=== PATIENT | male | born 1965 | race Hispanic/Latino ===

== ENCOUNTER 2017-03-13 08:50 | Inpatient (IN) | payer OTHER ==
[~2017-03-13 08:50] MED LIST: HEPARIN IV ONE; NACL 0.9% 1000 ML 1,000 ML IV ONE; ZOFRAN IV ONE
[2017-03-13] MEDS ORDERED: HEPARIN 10,000 UNITS/10 ML ONE ×2 (08:58→08:59)
[2017-03-13] MEDS ORDERED: HEPARIN/ 0.45% NACL-25,000 UNIT/500 ML 0 UNIT/0 ML BAG ONE (08:58)
--- NOTE | 2017-03-13 08:58 | Emergency Department Report ---
ED Chest Pain HPI - General Stated Complaint: CHEST PAIN Time Seen by Provider: 03/13/17 08:50 - History of Present Illness Initial Comments: 52-year-old male here with chest pain. Patient started having pressure was walking at work. Patient felt significant pressure in the center of his chest and shortness of breath associated with it. Complains of some nausea no vomiting. EMS transmitted EKG approximately 5 minutes prior to arrival that showed inferior ST elevation in leads 2,3 and aVF. He was given 0.4 mg of nitroglycerin prior to arrival and an aspirin prior to arrival. -: Sudden Onset: during rest, during exertion Pain Location: substernal Pain Radiation: none Severity: severe Quality: tightness Improves With: nothing Worsens With: nothing re: nausea Treatments Prior to Arrival: aspirin, nitroglycerin - Related Data Previous Rx's Medication Instructions Recorded Last Taken Type Cephalexin [Keflex] 500 mg PO Q6H #40 capsule 12/02/14 Unknown Rx Ibuprofen [Motrin] 600 mg PO Q8H PRN #50 tablet 12/02/14 Unknown Rx Sulfamethoxazole/Trimethoprim 1 each PO BID #20 tablet 12/02/14 Unknown Rx [Bactrim Ds] oxyCODONE /ACETAMINOPHEN [Percocet 1 tab PO Q6HR PRN #20 tablet 12/02/14 Unknown Rx 5/325] Allergies Allergy/AdvReac Type Severity Reaction Status Date / Time No Known Allergies Allergy Unverified 12/01/14 18:03 Heart Score - HEART Score History: Highly suspicious EKG: Significant ST-depression Age: 45-65 Risk factors: 1-2 risk factors Troponin: < normal limit HEART Score: 6 ED Review of Systems ROS: Stated complaint: CHEST PAIN Other details as noted in HPI Comment: All other systems reviewed and negative Constitutional: denies: chills, fever Eyes: denies: eye pain, eye discharge, vision change ENT: denies: ear pain, throat pain Respiratory: denies: cough, shortness of breath, wheezing Cardiovascular: chest pain. denies: palpitations Endocrine: no symptoms reported Gastrointestinal: denies: abdominal pain, nausea, diarrhea Genitourinary: denies: urgency, dysuria Musculoskeletal: denies: back pain, joint swelling, arthralgia Skin: denies: rash, lesions Neurological: denies: headache, weakness, paresthesias Psychiatric: denies: anxiety, depression Hematological/Lymphatic: denies: easy bleeding, easy bruising ED Past Medical Hx - Family History Family history: no significant, CAD/RI - Social History Smoking Status: Current Every Day Smoker Substance Use Type: None, Marijuana - Medications Home Medications: Home Medications Medication Instructions Recorded Confirmed Last Taken Type Cephalexin [Keflex] 500 mg PO Q6H #40 capsule 12/02/14 Unknown Rx Ibuprofen [Motrin] 600 mg PO Q8H PRN #50 tablet 12/02/14 Unknown Rx Sulfamethoxazole/Trimethoprim 1 each PO BID #20 tablet 12/02/14 Unknown Rx [Bactrim Ds] oxyCODONE /ACETAMINOPHEN [Percocet 1 tab PO Q6HR PRN #20 tablet 12/02/14 Unknown Rx 5/325] ED Physical Exam - General General appearance: alert, anxious, other (appears uncomfortable) - Head Head exam: Present: atraumatic, normocephalic - Eye Eye exam: Present: normal appearance. Absent: scleral icterus, conjunctival injection - ENT ENT exam: Present: mucous membranes moist - Neck Neck exam: Present: normal inspection - Respiratory Respiratory exam: Present: normal lung sounds bilaterally. Absent: respiratory distress - Cardiovascular Cardiovascular Exam: Present: regular rate, normal rhythm, normal heart sounds. Absent: systolic murmur, diastolic murmur, rubs, gallop - GI/Abdominal GI/Abdominal exam: Present: soft, normal bowel sounds. Absent: distended, tenderness, guarding - Rectal Rectal exam: Present: deferred - Extremities Exam Extremities exam: Present: normal inspection - Back Exam Back exam: Present: normal inspection - Neurological Exam Neurological exam: Present: alert, oriented X3 - Psychiatric Psychiatric exam: Present: normal affect, normal mood - Skin Skin exam: Present: warm, dry, intact, normal color. Absent: rash ED Medical Decision Making - EKG Data -: EKG Interpreted by Me - EKG Data 03/13/17 09:01 Sinus rate of 80 normal axis, ST elevation in leads 23 aVF. Right-sided EKG shows ST elevation in 23 aVF and leads V4 through V6 consistent with possible RV infarct - Medical Decision Making Patient presented with obvious ST elevation RI. bottle labeler activated prior to arrival. Discussed case with Dr. Hassan and passed along ST elevation RI information. On arrival repeat EKG shows clear ST elevation RI. Patient quickly taken to [facility]. Portions of this chart were dictated with dictation software. There may be dictation errors contained within this note. Critical care attestation.: If time is entered above; I have spent that time in minutes in the direct care of this critically ill patient, excluding procedure time. ED Disposition Clinical Impression: STEMI (ST elevation myocardial infarction) Disposition: OP ADMIT IP TO THIS HOSP Is pt being admited?: Yes Condition: Stable
[2017-03-13] MEDS ORDERED: HEPARIN/NS 5000 UNIT/500ML(CATH LAB) 1,000 ML IR ONE (08:59)
[2017-03-13] MEDS ORDERED: HEPARIN/ 0.45% NACL-25,000 UNIT/500 ML 25,000 UNIT/500 ML BAG IV SCH (09:00)
[2017-03-13] MEDS ORDERED: XYLOCAINE 2% INFILTRATI ONE (09:00)
[2017-03-13] MEDS ORDERED: NITROGLYCERIN SYRINGE 3 ML ONE (09:00)
[2017-03-13] MEDS ORDERED: ANGIOMAX IV ONE (09:01)
[2017-03-13] MEDS ORDERED: NACL 0.9% 50 ML ONE (09:01)
[2017-03-13] MEDS ORDERED: NACL 0.9% 500 ML 0 ML ONE (09:02)
[2017-03-13 09:11] LABS: Basophils % (Auto) 0.9 % (0.0-1.8); Eosinophils % (Auto) 0.2 % (0.0-4.3); Hematocrit 46.8 % (35.5-45.6); Hemoglobin 15.8 gm/dl (11.8-15.2); Mean Corpuscular HGB Conc 34 % (32-34); Mean Corpuscular Hemoglobin 34 pg (28-32); Mean Corpuscular Volume 100 fl (84-94); Platelet Count 297 K/mm3 (140-440); Red Cell Distribution Width 13.4 % (13.2-15.2)
[2017-03-13] MEDS ORDERED: MILK OF MAGNESIA PO PRN (09:13)
[2017-03-13] MEDS ORDERED: ALUM-MAG HYDROX-SIMETH 200-200-20MG/5ML PO PRN (09:13)
[2017-03-13] MEDS ORDERED: DULCOLAX PR PRN (09:13)
[2017-03-13 09:14] LABS: Creatine Kinase MB 3.9 ng/mL (0.0-4.0)
[2017-03-13 09:15] LABS: Anion Gap 26 mmol/L; BUN/Creatinine Ratio 23.33; Blood Urea Nitrogen 21 mg/dL (9-20); Calcium 9.6 mg/dL (8.4-10.2); Carbon Dioxide 15 mmol/L (22-30); Chloride 95.3 mmol/L (98-107); Creatine Kinase 131 units/L (55-170); Glucose 178 mg/dL (75-100); Potassium 3.6 mmol/L (3.6-5.0); Sodium 133 mmol/L (137-145)
--- NOTE | 2017-03-13 09:22 | History and Physical Report ---
History of Present Illness Date of examination: 03/13/17 Date of admission: 03/13/2017 Chief complaint: chest pain History of present illness: The pt is a 52-year-old male with a past medical history significant for tobacco use. He is previously unknown to our practice. He presented via EMS with c/o chest pain. Patient started having pressure while walking at work. Patient felt significant pressure in the center of his chest and shortness of breath associated with it. Pt also complains of some nausea, no vomiting. Per EMS, pt was found to be hypertensive following their arrival (BPs approx. 210/ 100). EMS transmitted EKG approximately 5 minutes prior to arrival that showed inferior ST elevation in leads 2,3 and aVF and code STEMI was activated prior to pt's arrival. En route to ED, pt was given 0.4 mg of nitroglycerin and 324mg ASA. Per EMS, pt's BPs improved to 170s/90s following SL nitro. Following arrival, repeat EKG showed inferolateral ST elevations and pt was transported to cath laboratory technician for emergent coronary angiography per Dr. Cynthia Hassan. Past History Past Medical History: No medical history Past Surgical History: No surgical history Social history: smoking. denies: alcohol abuse, prescription drug abuse Medications and Allergies Allergies Allergy/AdvReac Type Severity Reaction Status Date / Time No Known Allergies Allergy Unverified 12/01/14 18:03 Home Medications Medication Instructions Recorded Confirmed Last Taken Type Cephalexin [Keflex] 500 mg PO Q6H #40 capsule 12/02/14 Unknown Rx Ibuprofen [Motrin] 600 mg PO Q8H PRN #50 tablet 12/02/14 Unknown Rx Sulfamethoxazole/Trimethoprim 1 each PO BID #20 tablet 12/02/14 Unknown Rx [Bactrim Ds] oxyCODONE /ACETAMINOPHEN [Percocet 1 tab PO Q6HR PRN #20 tablet 12/02/14 Unknown Rx 5/325] Active Meds: Active Medications Heparin Sodium (Porcine) (Heparin) 4,000 unit IV ONCE ONE Stop: 03/13/17 08:51 Last Admin: 03/13/17 08:57 Dose: 4,000 unit Heparin Sodium/Sodium Chloride (Heparin/ 0.45% Nacl-25,000 Unit/500 Ml) 25,000 unit in 500 mls @ 0 mls/hr IV TITRATE IVETT; 15 UNITS/KG/HR PRN Reason: Protocol Sodium Chloride (Nacl 0.9% 1000 Ml) 1,000 mls @ 42 mls/hr IV ONCE ONE Stop: 03/14/17 08:38 Last Admin: 03/13/17 08:58 Dose: 42 mls/hr Review of Systems Constitutional: no weight loss, no weight gain, no fever, no chills, no sweats Ears, nose, mouth and throat: no ear pain, no nose pain, no sinus pressure, no sinus pain Cardiovascular: chest pain, shortness of breath, dyspnea on exertion, no orthopnea, no palpitations, no rapid/irregular heart beat, no edema, no syncope , no lightheadedness, no paroxysmal nocturnal dyspnea, no high blood pressure Respiratory: shortness of breath, dyspnea on exertion, no cough, no congestion, no wheezing, no pain on inspiration Gastrointestinal: nausea, no abdominal pain, no vomiting, no diarrhea, no constipation, no change in bowel habits Genitourinary Male: no dysuria, no hematuria, no flank pain, no discharge, no urinary frequency, no urinary hesitancy Musculoskeletal: no neck stiffness, no neck pain, no shooting arm pain, no arm numbness/tingling, no low back pain, no shooting leg pain, no leg numbness/ tingling, no redness of joints Integumentary: no rash, no pruritis, no redness, no sores, no wounds Neurological: no head injury, no paralysis, no weakness, no parathesias, no numbness, no tingling, no seizures, no syncope Endocrine: no cold intolerance, no heat intolerance Hematologic/Lymphatic: no easy bruising, no easy bleeding, no lymphadenopathy Allergic/Immunologic: no urticaria, no wheezing, no persistent infections Physical Examination Vital Signs Temp Pulse Resp BP Pulse Ox 98.0 F 74 22 169/100 100 03/13/17 08:51 03/13/17 08:51 03/13/17 08:51 03/13/17 08:51 03/13/17 08:51 General appearance: mild distress, other (diaphoretic ) HEENT: Positive: PERRL Neck: Positive: neck supple, trachea midline Cardiac: Positive: Reg Rate and Rhythm, S1/S2 Lungs: Positive: clear to auscultation Neuro: Positive: Grossly Intact, Cranial Nerve 2-12 Intact Abdomen: Positive: Unremarkable, Soft, Active Bowel Sounds. Negative: Tender Skin: Positive: Clear. Negative: Rash, Wound Musculoskeletal: No Fluid Collection, No Pain, Normal Range of Motion Extremities: Absent: edema Results 03/13/17 08:51 03/13/17 08:51 Cardiac Enzymes 03/13/17 Range/Units 08:51 CK-MB (CK-2) 3.9 (0.0-4.0) ng/mL CBC 03/13/17 Range/Units 08:51 Blanco # 0.8 (0.0-0.8) K/mm3 Eos # 0.0 (0.0-0.4) K/mm3 Baso # 0.1 (0.0-0.1) K/mm3 Comprehensive Metabolic Panel 03/13/17 Range/Units 08:51 Sodium 133 L (137-145) mmol/L Potassium 3.6 (3.6-5.0) mmol/L Chloride 95.3 L (98-107) mmol/L Carbon Dioxide 15 L (22-30) mmol/L BUN 21 H (9-20) mg/dL Creatinine 0.9 (0.8-1.5) mg/dL Glucose 178 H (75-100) mg/dL Calcium 9.6 (8.4-10.2) mg/dL - Imaging and Cardiology Echo: pending Cardiac cath: pending EKG: image reviewed EKG interpretations - Telemetry EKG Rhythm: Sinus Rhythm - EKG Sinus rhythms and dysrhythmias: sinus rhythm Myocardial infarction: inferior PA (acute or rec, lateral PA (acute or rece Assessment and Plan Assessment: Inferolateral STEMI HTN Tobacco use Plan: Proceed with [facility]. Await findings. The patient has been seen in conjunction with Dr. Cynthia Hassan who agrees with the assessment and plan of care.
[2017-03-13] MEDS ORDERED: EFFIENT PO ONE (09:37)
[2017-03-13 09:43] LABS: INR 0.9 (0.87-1.13)
[2017-03-13 09:44] LABS: Partial Thromboplastin Time 31.4 Sec. (24.2-36.6)
[2017-03-13] MEDS ORDERED: SUBLIMAZE ONE (10:03)
--- NOTE | 2017-03-13 10:13 | Admit Criteria Form ---
Admission Criteria Documentation: MYOCARDIAL INFARCTION Clinical Indications for Admission to Inpatient Care (Place 'X' for any and all applicable criteria): Admission is indicated for 1 or more of the following (1)(2)(3)(4): [X]I. Acute DE [ ]II. Contraindications and/or Inappropriate clinical situations for Observational Care in patients with Myocardial Infarction, when ANY ONE of the following is required: [ ]a) Patient with High risk of cardiac embolism (e.g, patients with previous cardiac embolism, LVEF < 40%, age >75 and patients with prosthetic valve) 18 [ ]b) Patient with Moderate risk including DM patient, CAD and patient aged 65-75 18 [ ]c) Patient with any change in cardiac biomarker especially troponin should be managed as high risk in an inpatient setting 19 [ ]d) Physician judgement irrespective of ECG and other diagnostic findings 20 [ ]III.General contraindications and/or Inappropriate clinical situations for Observational Care in patients with Myocardial Infarction, when ANY ONE of the following is required: [ ]a) Prediction of prolongation of LOS based on ANY ONE of the following may be considered as a contraindication for observational care 2, 3, 4, 5, 6, 7, 8, 9, 10, 11 [ ]i) Age > 65 yrs. [ ]ii) Patient arriving by ambulance [ ]iii) Patient with high acuity [ ]iv) Patient requiring vital sign monitoring [ ]v) Patient on IV medication [ ]b) Systolic blood pressures greater than or equal to 180mmHg 3,12 [ ]c) Patient with altered mental status including delirium and other alteration of consciousness, (3) [ ]d) Patient whose discharge disposition will be to a [place] [facility] home or rehabilitation home should not be managed in Emergency Department Observation Unit. CMS rule requires 3 days hospital stay before such placement. 3,13 [ ]e) Patient with failure to thrive due to broad array of etiologies 3 ,16,17 [ ]f) Inability to ambulate 3,14 Extended stay beyond goal length of stay may be needed for (1)(18)(20)(24)(25): [ ]a) Hemodynamic instability, persisting symptoms after intensive medical management, or recurring severe, prolonged symptoms [ ]b) Intravascular procedural complications such as acute vessel closure, stent thrombosis, stent malposition, or vessel dissection (26)(27)(28) [ ]c) Extravascular procedural complications such as retroperitoneal hematoma , pericardial effusion, or cardiac tamponade [ ]d) Entry site complications causing bleeding, hematoma or distal ischemia and requiring ongoing monitoring, surgical repair or surgical thrombectomy. Dangerous arrhythmia [ ]e) Complicated percutaneous coronary intervention (e.g., unsuccessful percutaneous coronary intervention or percutaneous coronary intervention of non- zuni vessel) [ ]f) Urgent or emergent surgery for complications of DE (e.g., ventricular rupture, valvular insufficiency) [ ]g) Surgical revascularization via coronary artery bypass graft [ ]h) Heart failure (e.g., pulmonary edema) [ ]i) Unstable pulmonary comorbidities, including COPD or pneumonia (31) [ ]j) Acute renal failure The original [employer] content created by [email or web address] has been revised. The portions of the content which have been revised are identified through the use of italic text or in bold, and [email or web address] has neither reviewed nor approved the modified material. All other unmodified content is copyright [facility] Please see references footnoted in the original [facility] [facility] edition 2016 Admission Criteria Met: Yes
[2017-03-13] MEDS ORDERED: HEPARIN 10,000 UNITS/10 ML IV ONE ×2 (10:20→11:00)
[2017-03-13] MEDS ORDERED: HEPARIN ONE (10:26)
--- NOTE | 2017-03-13 11:17 | Cardiac Catherization Report ---
CARDIAC CATHETERIZATION INDICATION: For cardiac cath. INDICATION FOR PROCEDURE: The patient is a pleasant 52-year-old gentleman, who presents with an inferior STEMI. STEMI protocol initiated, referred for left heart catheterization. Risks, benefits, and alternatives discussed prior to obtaining informed consent. PROCEDURE IN DETAIL: The patient was brought to the catheterization lab in a postabsorptive state, prepped and draped in sterile fashion. An 8 mL of 2% lidocaine used to anesthetize the right groin. A standard 6 Turkish sheath used to cannulate the common femoral artery via modified Seldinger technique. A standard 7 Turkish sheath used to cannulate the right femoral vein via modified Seldinger technique in the case that we would need a temporary pacemaker. A JL4 catheter was used to engage the LAD and left circumflex separately, there were dual ostia, angiography performed in all projections. Next, the JR4 guide used to cross the aortic valve under fluoroscopic guidance. Left ventriculography performed in 30 ROSE and 30 MICRONESIAN projections via hand injections, catheter flushed. Manual pullback performed with continuous pressure monitoring. Catheter used to engage the right coronary. No dampening or ventricularization. Angiography performed. DATA: Aortic pressure is 130/80, LV pressure is 130, LVEDP of 12 mmHg. Left ventriculography revealed normal systolic performance with estimated ejection fraction of 55%-60%. No evidence of aortic stenosis. CORONARY ANATOMY: This is a codominant system. Left circumflex has a separate ostia, left coronary cusp, left PDA, OM trunk. No significant disease. LAD is a moderate sized vessel, courses anterior intergroove, wraps around the apex, no significant disease in the LAD. Right coronary is found to be occluded in the mid segment. At this point, we used a [place] wire to cross the lesion without difficulty. Heparin and aspirin already given. Abnormal ACT is confirmed. We used a 2.0 x 12 balloon to predilate the lesion. Next, it is a small vessel, I used a 2.25 x 26 Resolute Integrity stent deployed at 9 MIA for 20 seconds. Excellent angiographic result. Intravascular ultrasound was performed, which revealed well apposed and well expanded stent, SURESH 3 flow, no complications. At this point, the wire and catheter were removed from body. Sheath was secured in place. CONCLUSIONS: 1. Acute atherothrombotic occlusion of a small mid right coronary in the setting of an inferior ST-elevation myocardial infarction. 2. Successful IVUS guided PCI of the mid RCA with placement of drug-eluting stent, Resolute 2.25 x 26 with excellent final angiographic and ultrasonographic results. 3. No significant disease in the left system. 4. Preserved left ventricular systolic performance. The patient is clinically stable, chest pain free, electrical and hemodynamically stable. Abnormal ACT is confirmed. The patient loaded with aspirin and Effient. Standard groin care. We will watch in ICU. We will check an echocardiogram. Results of the procedure were explained at length to the patient and family. All questions and concerns were addressed. JOB# [id number] BELLA/PAPO
--- NOTE | 2017-03-13 11:55 | XRay Report ---
AP CHEST: HISTORY: chest pain AP view of the chest demonstrates a normal mediastinal and cardiac contour with clear lungs and normal bony and soft tissue structures. IMPRESSION: No acute cardiopulmonary process.
[2017-03-13 12:37] LABS: Creatine Kinase MB 13.7 ng/mL (0.0-4.0)
[2017-03-13 13:45] LABS: Bilirubin,Urine NEG (Negative); Blood,Urine NEG (Negative); Ketones,Urine NEG (Negative); Leukocyte Esterase,Urine NEG (Negative); Mucus,Urine FEW /HPF; Nitrite,Urine NEG (Negative); Protein,Urine <15 mg/dL mg/dL (Negative); Urobilinogen,Urine < 2.0 mg/dL (<2.0); WBC,Urine < 1.0 /HPF (0.0-6.0)
--- NOTE | 2017-03-13 15:01 | Consultation ---
History of Present Illness Consult date: 03/13/17 Reason for consult: chest pain History of present illness: The pt is a 52-year-old male with a past medical history significant for tobacco use. He is previously unknown to our practice. He presented via EMS with c/o chest pain. Patient started having pressure while walking at work. Patient felt significant pressure in the center of his chest and shortness of breath associated with it. Pt also complains of some nausea, no vomiting. Per EMS, pt was found to be hypertensive following their arrival (BPs approx. 210/ 100). EMS transmitted EKG approximately 5 minutes prior to arrival that showed inferior ST elevation in leads 2,3 and aVF and code STEMI was activated prior to pt's arrival. En route to ED, pt was given 0.4 mg of nitroglycerin and 324mg ASA. Per EMS, pt's BPs improved to 170s/90s following SL nitro. Following arrival, repeat EKG showed inferolateral ST elevations and pt was transported to offset label rewinder for emergent coronary angiography per Dr. Cynthia Hassan. s/p Cath Past History Past Medical History: No medical history Past Surgical History: No surgical history Social history: smoking. denies: alcohol abuse, prescription drug abuse Medications and Allergies Allergies Allergy/AdvReac Type Severity Reaction Status Date / Time No Known Allergies Allergy Unverified 12/01/14 18:03 Home Medications Medication Instructions Recorded Confirmed Last Taken Type Ibuprofen [Motrin] 600 mg PO Q8H PRN #50 tablet 12/02/14 03/13/17 Unknown Rx Sulfamethoxazole/Trimethoprim 1 each PO BID #20 tablet 12/02/14 03/13/17 Rx [Bactrim Ds] Active Meds: Active Medications Al Hydrox/Mg Hydrox/Simethicone (Alum-Mag Hydrox-Simeth [id number]/5ml) 30 ml PO Q4H PRN PRN Reason: Indigestion Aspirin (Aspirin) 325 mg PO QDAY IVETT Atorvastatin Calcium (Lipitor) 80 mg PO QHS IVETT Bisacodyl (Dulcolax) 10 mg VA QDAY PRN PRN Reason: constipation unrelieved by MOM Sodium Chloride (Nacl 0.9% 1000 Ml) 1,000 mls @ 42 mls/hr IV ONCE ONE Stop: 03/14/17 08:38 Last Admin: 03/13/17 08:58 Dose: 42 mls/hr Magnesium Hydroxide (Milk Of Magnesia) 30 ml PO Q4H PRN PRN Reason: Constipation Last Admin: 03/13/17 09:55 Dose: 30 ml Prasugrel (Effient) 10 mg PO QDAY IVETT Physical Examination Vital signs: Vital Signs Temp Pulse Resp BP Pulse Ox 98.0 F 74 22 169/100 100 03/13/17 08:51 03/13/17 08:51 03/13/17 08:51 03/13/17 08:51 03/13/17 08:51 Results - Laboratory Findings CBC and BMP: 03/13/17 08:51 03/13/17 08:51 PT/INR, D-dimer PT 12.6 Sec. (12.2-14.9) 03/13/17 08:51 INR 0.90 (0.87-1.13) 03/13/17 08:51 Abnormal lab findings: Abnormal Labs 03/13/17 03/13/17 03/13/17 09:20 09:46 11:52 Activated Clotting Time 197 H 213 H Total Creatine Kinase 244 H CK-MB (CK-2) 13.7 H CK-MB (CK-2) Rel Index 5.6 H Troponin T 0.353 H* D Ur Specific [place] 03/13/17 03/13/17 12:30 12:44 Activated Clotting Time 164 H Total Creatine Kinase CK-MB (CK-2) CK-MB (CK-2) Rel Index Troponin T Ur Specific [place] 1.049 H
--- NOTE | 2017-03-13 15:34 | Event Note ---
Date: 03/13/17 Pt s/p LHC via right femoral artery with subsequent PCI of RCA this AM. Pt re- evaluated with no cardiac complaints. Post-PCI EKG shows resolution of ST elevations. Right femoral LHC site with pressure dressing in place; site c/d/i with no evidence of bleeding or hematoma. All pulses intact. Cont ASA 325 & effient. Initiate lipitor. No beta blockers at this time in setting of borderline bradycardia (HR in 60s) with recent inferior [place]. Will readdress BB candidacy prior to discharge. Await echo. Cont telemetry and ICU care. Sayda MOE NP / DR. ALEGRE
[2017-03-13 15:36] LABS: Creatine Kinase MB 22.7 ng/mL (0.0-4.0)
[2017-03-13] MEDS ORDERED: MORPHINE IV ONE (21:00)
[2017-03-14 05:33] LABS: Basophils % (Auto) 0.6 % (0.0-1.8); Hematocrit 41.3 % (35.5-45.6); Hemoglobin 14.2 gm/dl (11.8-15.2); Mean Corpuscular HGB Conc 34 % (32-34); Mean Corpuscular Hemoglobin 34 pg (28-32); Mean Corpuscular Volume 100 fl (84-94); Platelet Count 237 K/mm3 (140-440); Red Blood Count 4.13 M/mm3 (3.65-5.03); Red Cell Distribution Width 13.6 % (13.2-15.2); White Blood Count 9.2 K/mm3 (4.5-11.0)
[2017-03-14 05:55] LABS: Creatine Kinase MB 22.4 ng/mL (0.0-4.0)
[2017-03-14 05:58] LABS: Alanine Aminotransferase 21 units/L (7-56); Albumin 3.8 g/dL (3.9-5); Albumin/Globulin Ratio 1.6 %; Alkaline Phosphatase 63 units/L (35-129); BUN/Creatinine Ratio 18.33; Blood Urea Nitrogen 11 mg/dL (9-20); Calcium 8.7 mg/dL (8.4-10.2); Carbon Dioxide 22 mmol/L (22-30); Creatine Kinase 290 units/L (55-170); Glucose 97 mg/dL (75-100); Potassium 4.6 mmol/L (3.6-5.0); Sodium 137 mmol/L (137-145); Total Protein 6.2 g/dL (6.3-8.2)
[2017-03-14 06:02] LABS: Anion Gap 19 mmol/L
[2017-03-14] MEDS: ASPIRIN PO SCH (09:15)
[2017-03-14] MEDS: EFFIENT PO SCH (09:15)
--- NOTE | 2017-03-14 10:51 | Event Note ---
Date: 03/14/17 Stable. Vitals, labs,medications, chart reviewed. Plan for transfer to telemetry under the care of the cardiology service.
--- NOTE | 2017-03-14 12:22 | Progress Note ---
Assessment and Plan Assessment: Inferolateral STEMI CAD s/p PCI of RCA 03/13/2017 HTN Tobacco use - cessation encouraged Plan: Right femoral C site c/d/i with no evidence of bleeding or hematoma. All pulses intact. Cont ASA 325, effient, lipitor. No beta blockers at this time in setting of sinus bradycardia and in setting of recent inferior MT. Echo reviewed with NAF. Encourage increased activity and ambulation. Currently stable cardiac status. Pt may tx out of ICU to telemetry. Possible d/c home in AM. The patient has been seen in conjunction with Dr. Irving who agrees with the assessment and plan of care. Subjective Date of service: 03/14/17 Principal diagnosis: STEMI Interval history: Pt resting comfortably in bed, denies any cardiac complaints. Repeat EKG this AM shows SB with NAF. Remains with SB on telemetry overnight, BPs stable. at bedside. Objective Last Vital Signs Temp 98.4 F 03/14/17 09:27 Pulse 51 L 03/14/17 12:01 Resp 17 03/14/17 12:01 BP 138/84 03/14/17 12:01 Pulse Ox 99 03/14/17 12:01 - Physical Examination HEENT: Positive: PERRL Neck: Positive: neck supple, trachea midline Cardiac: Positive: Reg Rate and Rhythm, S1/S2 Lungs: Positive: clear to auscultation Neuro: Positive: Grossly Intact, Cranial Nerve 2-12 Intact Abdomen: Positive: Unremarkable, Soft, Active Bowel Sounds. Negative: Tender Skin: Positive: Clear. Negative: Rash, Wound Musculoskeletal: No Fluid Collection, No Pain, Normal Range of Motion Extremities: Absent: edema - Labs and Meds Cardiac Enzymes 03/13/17 03/13/17 03/14/17 Range/Units 11:52 14:55 05:12 AST 37 (5-40) units/L CK-MB (CK-2) 13.7 H 22.7 H 22.4 H (0.0-4.0) ng/mL Lipids 03/13/17 Range/Units 11:52 Triglycerides 36 (2-149) mg/dL Cholesterol 178 (50-199) mg/dL HDL Cholesterol 49 (40-59) mg/dL Cholesterol/HDL Ratio 3.63 % CBC 03/14/17 Range/Units 05:12 WBC 9.2 (4.5-11.0) K/mm3 RBC 4.13 (3.65-5.03) M/mm3 Hgb 14.2 (11.8-15.2) gm/dl Hct 41.3 (35.5-45.6) % Plt Count 237 (140-440) K/mm3 Lymph # 2.8 (1.2-5.4) K/mm3 [place] # 0.9 H (0.0-0.8) K/mm3 Eos # 0.1 (0.0-0.4) K/mm3 Baso # 0.1 (0.0-0.1) K/mm3 Comprehensive Metabolic Panel 03/14/17 Range/Units 05:12 Sodium 137 (137-145) mmol/L Potassium 4.6 D (3.6-5.0) mmol/L Chloride 101.0 (98-107) mmol/L Carbon Dioxide 22 D (22-30) mmol/L BUN 11 (9-20) mg/dL Creatinine 0.6 L (0.8-1.5) mg/dL Glucose 97 (75-100) mg/dL Calcium 8.7 (8.4-10.2) mg/dL AST 37 (5-40) units/L ALT 21 (7-56) units/L Alkaline Phosphatase 63 (35-129) units/L Total Protein 6.2 L (6.3-8.2) g/dL Albumin 3.8 L (3.9-5) g/dL - Imaging and Cardiology EKG: image reviewed Echo: report reviewed (EF 50 - 55%, mild TR) Cardiac cath: report reviewed (PCI of RCA) - Telemetry EKG Rhythm: Sinus Rhythm - EKG Sinus rhythms and dysrhythmias: sinus rhythm Myocardial infarction: inferior MT (acute or rec, lateral MT (acute or rece
[2017-03-15 09:52] VITALS: BP 128/84
[2017-03-15] MEDS: ASPIRIN PO SCH (10:07)
[2017-03-15] MEDS: EFFIENT PO SCH (10:07)
--- NOTE | 2017-03-15 11:19 | Progress Note ---
Assessment and Plan Assessment: Inferolateral STEMI CAD s/p PCI of RCA 03/13/2017 HTN Tobacco use - cessation encouraged Plan: Pt is concerned that he will not be able to afford effient. Additionally, no current effient coupon cards are available via the hospital or our office. Will convert pt to Plavix. Give loading dose of plavix, 300mg, now prior to discharge. Cont ASA 325mg and Plavix 75mg from tomorrow AM. Cont lipitor. No beta blockers at this time in setting of sinus bradycardia and in setting of recent inferior AR. Currently stable cardiac status. Pt may discharge home today. Follow up in our [place] office with Dr. Cynthia Hassan on 03/23/2017 @ 1:15PM. The patient has been seen in conjunction with Dr. Irving who agrees with the assessment and plan of care. Subjective Date of service: 03/15/17 Principal diagnosis: STEMI Interval history: Pt resting comfortably in bed, denies any cardiac complaints. Remains with SB on telemetry overnight, BPs stable. at bedside. Objective Last Vital Signs Temp 98.5 F 03/15/17 09:49 Pulse 55 L 03/15/17 09:49 Resp 16 03/15/17 09:49 BP 128/84 03/15/17 09:49 Pulse Ox 97 03/15/17 09:49 - Physical Examination General: Appears Well, No Apparent Distress HEENT: Positive: PERRL Neck: Positive: neck supple, trachea midline Cardiac: Positive: S1/S2, Bradycardia Lungs: Positive: clear to auscultation Neuro: Positive: Grossly Intact, Cranial Nerve 2-12 Intact Abdomen: Positive: Unremarkable, Soft, Active Bowel Sounds. Negative: Tender Skin: Positive: Clear. Negative: Rash, Wound Musculoskeletal: No Fluid Collection, No Pain, Normal Range of Motion Extremities: Absent: edema - Imaging and Cardiology EKG: image reviewed Echo: report reviewed (EF 50 - 55%, mild TR) Cardiac cath: report reviewed (PCI of RCA) - EKG Sinus rhythms and dysrhythmias: sinus rhythm Myocardial infarction: inferior AR (acute or rec, lateral AR (acute or rece
--- NOTE | 2017-03-15 11:29 | Discharge Summary ---
Providers - Providers Date of Admission: 03/13/17 09:13 Date of discharge: 03/15/17 Attending physician: SOLOMON MALIK 03/13/17 10:16 Consult to Cardiac Rehabilitation [CONS] Routine Reason For Exam: Cardiac Rehab Evaluation 03/13/17 10:17 Consult to Physician [CONS] Routine Consulting Provider: JERILYN EMANUEL Reason For Exam: stemi Place consult to:: Dr. Emanuel Notified:: yes Phone number called:: [phone] Was contact made?: Yes If yes, spoke with:: Dr Emanuel Time called:: 12:34 Primary care physician: JEWEL SUPERVISOR Hospitalization Reason for admission: Inferolateral STEMI Condition: Stable Pertinent studies: LHC and echocardiogram Procedures: LHC and echocardiogram Hospital course: The pt is a 52-year-old male with a past medical history significant for tobacco use. He is previously unknown to our practice. He presented on 03/13/2017 via EMS with c/o chest pain. Patient started having pressure while walking at work. Patient felt significant pressure in the center of his chest and shortness of breath associated with it. Pt also complains of some nausea, no vomiting. Per EMS, pt was found to be hypertensive following their arrival (BPs approx. 210/100). EMS transmitted EKG approximately 5 minutes prior to arrival that showed inferior ST elevation in leads 2,3 and aVF and code STEMI was activated prior to pt's arrival. En route to ED, pt was given 0.4 mg of nitroglycerin and 324mg ASA. Per EMS, pt's BPs improved to 170s/90s following SL nitro. Following arrival, repeat EKG showed inferolateral ST elevations and pt was transported to labor mediator for emergent coronary angiography per Dr. Cynthia Malik. Pt subsequently underwent PCI of RCA and was admitted to CCU. Echo was performed which showed EF 50-55%. Pt remained clinically and hemodynamically stable throughout his LHC and recovery and is now stable for discharge home. Cont ASA 325mg and Plavix 75mg from tomorrow AM. Cont lipitor. No beta blockers at this time in setting of sinus bradycardia and in setting of recent inferior GA. Follow up in our [place] office with Dr. Cynthia Malik on 03/23/2017 @ 1:15PM. Disposition: DC-[id number] TO HOME OR SELFCARE - Discharge Diagnoses (1) ST elevation myocardial infarction (STEMI) of inferolateral wall Status: Acute (2) CAD (coronary artery disease) Status: Chronic Qualifiers: Coronary Disease-Associated Artery/Lesion type: C [place] vs. transplanted heart: N Associated angina: A (3) Stented coronary artery Status: Chronic (4) Hypertension Status: Chronic Qualifiers: Hypertension type: H (5) Dyslipidemia Status: Chronic (6) Tobacco use Status: Chronic Core Measure Documentation - Palliative Care Palliative Care/ Comfort Measures: Not Applicable - Core Measures Any of the following diagnoses?: acute GA - Acute GA Discharge Requirements Aspirin at discharge: Yes HEENA/ARB for LVSD if EF <40%: Not Applicable Beta pedro at discharge: No Reason for no beta pedro on DC: Bradycardia Statin for LDL = or >100 mg/dl on DC: Yes Exam - Constitutional Vitals: Temp Pulse Resp BP Pulse Ox 98.5 F 55 L 16 128/84 97 03/15/17 09:49 03/15/17 09:49 03/15/17 09:49 03/15/17 09:49 03/15/17 09:49 General appearance: Present: no acute distress - EENT Eyes: Present: PERRL, EOM intact ENT: hearing intact, clear oral mucosa, dentition normal - Neck Neck: Present: supple, normal ROM - Respiratory Respiratory effort: normal - Cardiovascular Rhythm: regular Heart Sounds: Present: S1 & S2 - Extremities Extremities: no ischemia, pulses intact, pulses symmetrical, No edema, normal temperature, normal color, Full ROM Peripheral Pulses: within normal limits - Abdominal General gastrointestinal: Present: soft, non-tender - Integumentary Integumentary: Present: clear, warm, dry - Musculoskeletal Musculoskeletal: strength equal bilaterally - Psychiatric Psychiatric: appropriate mood/affect, intact judgment & insight, cooperative - Neurologic Neurologic: CNII-XII intact Plan Activity: advance as tolerated Diet: low fat, low cholesterol, low salt Wound: open to air, keep clean and dry, per your surgeon's advice Follow up with: SOLOMON MALIK MD [Staff Physician] - 7 Days ( Follow up in our [place] office with Dr. Cynthia Malik on 03/23/2017 @ 1:15PM. ) Forms: CardCath PCI D/C Instructions Prescriptions: AtorvaSTATin [Lipitor] 80 mg PO QHS #30 tablet Clopidogrel Bisulfate [Plavix] 75 mg PO DAILY #30 tablet
[2017-03-15] MEDS ORDERED: PLAVIX PO ONE (12:00)
== END 2017-03-15 12:14 | disposition home or self-care (01) | DRG 247 ==
LOC: ED 08:50 → CC1 09:13 → 4A 03-14 16:58
PROVIDERS: ADMIT Internal Medicine; ATTEND Internal Medicine
PROC: 4A023N7 Measurement of Cardiac Sampling and Pressure, Left Heart, Percutaneous Approach (ICD-10-PCS; principal; 2017-03-13)
PROC: 027034Z Dilation of Coronary Artery, One Artery with Drug-eluting Intraluminal Device, Percutaneous Approach (ICD-10-PCS; 2017-03-13)
PROC: B2111ZZ Fluoroscopy of Multiple Coronary Arteries using Low Osmolar Contrast (ICD-10-PCS; 2017-03-13)
PROC: B2151ZZ Fluoroscopy of Left Heart using Low Osmolar Contrast (ICD-10-PCS; 2017-03-13)
DX: I21.19 ST elevation (STEMI) myocardial infarction involving other coronary artery of inferior wall (principal); I10 Essential (primary) hypertension; F17.210 Nicotine dependence, cigarettes, uncomplicated; E78.5 Hyperlipidemia, unspecified
CPT/HCPCS: 36415; 71010; 80048; 80053; 80061; 81001; 82550; 82553; 83036; 83735; 84484; 85025; 85347; 85610; 85730; 86850; 86900; 86901; 92941; 92978; 93005; 93010; 93306; 93458; 94760; 99406; A9270-GY; C1725; C1753; C1769; C1874; C1887; C1894; C9606; J0583; J1644; J2270; J2405; J3010; J7030; J7040; Q9967